=== PATIENT | male | born 1970 | race Caucasian/White ===

== ENCOUNTER 2025-02-02 14:07 | Outpatient (CLI) | payer BC, SELFPAY ==
--- OUTSIDE RECORDS SUMMARY | 2025-02-02 16:15 | XMS_ITS | Encounter Summary ---
Author Organization [facility] Health Address [address] [place] [address] Care Team Providers Care Crayon Sorting Machine Feeder Name Role Phone Unavailable Primary Care Provider Unavailabl e Encounter Details Date Type Department Care Team (Late st Contact Info) Description 04/25/2015 [facility] Outpatient Visit EXTERNAL NON-[facility] DEPT Chuck Egan MD [address] [place], [place] [id number] Social History Tobacco Use Types Packs/Day Years Used Date Smoking Tobacco: Every Day Cigarettes Alcohol Use Standard Drinks/Week Comments Yes 0 (1 standard drink = 0.6 oz pur e alcohol) socially Sex and Gender Information Value Date Recorded Sex Assigned at Not on file Legal Sex Male 4:28 AM DISABILITIES CAREGIVER Gender Identity Not on file Sexual Orientation Not on file documented as of this encounter Plan of Treatment Not on file documented as of this encounter Visit Diagnoses Not on filedocumented in this encounter
--- OUTSIDE RECORDS SUMMARY | 2025-02-02 16:15 | XMS_ITS | Clinical Summary ---
Author Organization [facility] Address [address] [place] [address] Phone Care Team Providers Care Splicing Machine Operator Automatic Name Role Phone Kristie Rooney APRN, KAHLIL Primary Care Provid er Anne Zamora MD Unavailable [phone] Allergies Active Allergy Reactions Criticality Noted Date Comments Amoxicillin-Pot Clavulanate Other (see Comments) 11/17/2008 Dizziness Poison Jaylene Extract Rash 06/03/2020 Poison [place] Extract Rash 06/03/2020 Zolpidem Other (see Comments) Low 03/12/2013 Abnormal dreams Medications traZODone (DESYREL) 50 MG TabletIndications: Primary insomnia TAKE 1 TABLET BY MOUTH EVERY NIGHT 30 Tablet 5 4 Active FLUoxetine (PROzac) 20 MG CapsuleIndications :Agitation TAKE 1 CAPSULE BY MOUTH DAILY 90 Capsule 1 5 Active atorvastatin (LIPITOR) 40 MG TabletIndications: Hyperlipidemia, unspecified hyperlipidemia type Take 1 Tablet by mouth daily. 90 Tablet 3 5 Active ondansetron (ZOFRAN-ODT) 4 MG TABLET DISPERSIBLE Take 1 Tablet by mouth every 8 hours as needed for Nausea - 1st line. 10 Tablet 5 Active meclizine (ANTIVERT) 25 MG TabletIndications: Meniere's disease of left ear Take 1 Tablet by mouth 3 times daily as needed for Dizziness. 30 Tablet 2 5 Active meclizine (ANTIVERT) 25 MG Tablet Take 1 Tablet by mouth 3 times daily as needed for Dizziness. 30 Tablet 3 01/26/20 25 Discontin ued(Reord er) atorvastatin (LIPITOR) 40 MG TabletIndications: Hyperlipidemia, unspecified hyperlipidemia type Take 1 Tablet by mouth daily. 90 Tablet 3 5 01/05/20 25 Discontin ued(Reord er) meclizine (ANTIVERT) 25 MG Tablet Take 1 Tablet by mouth 3 times daily as needed for Dizziness. 30 Tablet 5 01/26/20 25 Discontin ued(Med List Clean Up) Active Problems Problem Noted Date Diagnosed Date Meniere's disease of left ear 06/03/2020 Overview (06/03/2020): Followed by ENT [facility] in the past Past history of surgery Excessive daytime sleepiness 11/21/2017 Mild obstructive sleep apnea 11/21/2017 Vitamin D deficiency 01/16/2017 Overview (02/26/2023): Vitamin D deficiency Mixed anxiety depressive disorder 01/11/2017 Overview (02/26/2023): Anxiety and depression Hyperthyroidism 07/23/2013 Anxiety 08/16/2010 Hypertension 08/16/2010 Depression 08/16/2010 Encounters Date Type Department Care Team Description 01/25/2025 11:00 AM CDT Office Visit [facility] [address] [place] [address] Kristie Rooney APRN, DRY DIP WORKER Meniere's disease of left ear (Primary Dx) Discharge Disposition: Discharged to home or Selfcare 01/25/2025 Travel 01/20/2025 5:37 PM CDT - 01/20/2025 9:06 PM CDT [facility] [address] [place] [address] Raoul Gregg MD Vertigo Discharge Disposition: Discharged to home or Selfcare 01/20/2025 Travel 01/04/2025 11:45 AM CDT [facility] [place] [address] Kristie Rooney APRN, CNP Cough headache (Primary Dx); Viral illness; Hyperlipidemia, unspecified hyperlipidemia type; Bilateral hearing loss, unspecified hearing loss type Discharge Disposition: Discharged to home or Selfcare 01/04/2025 Travel 12/24/2024 [facility]ill [facility] [place] [address] Lc Castaneda MD Medication Refill 12/07/2024 [facility]ill [facility] [place] [address] Kristie Rooney APRN, CNP Medication Refill 12/02/2024 Telephone [facility] [address] [place] [address] Kristie Rooney APRN, CNP Form Completion; Letter for School/Work from Last 3 Months Immunizations Immunization Administration Dates Next Due Influenza Vaccine, Quadrivalent, PF 08/04/2021 Influenza,Split Virus,Trivalent,Injectable,PF Pneumococcal Vaccine Adult - 23 Valent TDAP Vaccine 06/03/2020,06/09/2009 Family History Medical History Relation Name Comments Alzheimer's Disease Father High Cholesterol Father Cancer Mother breast Heart Disease Mother Relation Name Status Comments Father Mother Social History Tobacco Use Types Packs/Day Years Used Date Smoking Tobacco: Former Cigarettes 1 30 Smokeless Tobacco: Never Tobacco Cessation:Counseling Given: No Alcohol Use Standard Drinks/Week Comments Not Currently 0 (1 standard drink = 0.6 oz pur e alcohol) PHQ-2 Answer Date Recorded Total Score - Questions 1-9 0 08/14 Education Answer Date Recorded What is the highest level of school you have completed or the highest degree you have received? 12th grade 05/30/2023 Sexually Active Control Partners Comments Yes Sex and Gender Information Value Date Recorded Sex Assigned at Not on file Legal Sex Male 10:07 AM CDT Gender Identity Not on file Sexual Orientation Not on file Last Filed Vital Signs Vital Sign Reading Time Taken Comments Blood Pressure 130/86 01/25/2025 11:18 AM CDT Pulse 76 01/25/2025 11:18 AM CDT Temperature 36.4 C (97.6 F) 01/25/2025 11:18 AM CDT Respiratory Rate 16 01/25/2025 11:1 8 AM CDT Oxygen Saturation 95% 01/25/2025 11: 18 AM CDT Inhaled Oxygen Concentration - - Weight 103.7 kg (228 lb 9.6 oz) 025 11:18 AM CDT Height 182.9 cm (6') 01/25/2025 11:18 AM CDT Body Mass Index 31 01/25/2025 11:18 AM CDT Plan of Treatment Upcoming Encounters Date Type Department Care Team (Late st Contact Info) Description 02/03/2025 10:00 AM CDT Office Visit [facility] General Surgery [facility] [address]2 [facility] [address] [place] [address] Kristie Rooney APRN, DRY DIP WORKER #2 [facility] [address] [place] [address] Anne Zamora MD #1 [place] [address] 08/27/2025 10:30 AM CREDIT CARD ASSOCIATE Office Visit [facility] Family Medicine [facility] [address]2 [place] [address] Kristie Rooney APRN, DRY DIP WORKER #[address] [address] Health Maintenance Due Date Last Done Comments Hepatitis C Virus (HCV) Screening 1970 Hepatitis B Immunization (1 of 3 - 19+ 3-dose series) 1989 Cologuard 2020 Immunochemical Fecal Occult Blood 2020 Zoster Immunization (1 of 2) 2020 Pneumococcal Immunization (5 0+ years) (2 of 2 - PCV) 08/04/2022 08/04/2021 SARS-COV-2 Immunization (3 - season) 2024 03/18/2021, 02/25/2021 Colonoscopy 07/06/2025 07/06/2020 Colorectal Cancer Screening 07/06/2025 Td Immunization Every 10 Yea rs (Adults With 1 Tdap) 06/03/2030 06/03/2020, 06/09/2009 Respiratory Syncytial Virus (RSV) Immunization (Adult) (1 - 1-dose 75+ series) 2045 07/06/2020 DTaP/Tdap/Td Immunization Discontinued 2019, 06/09/2009 Pneumococcal Immunization Combined Discontinued 08/04/2021 Lung Cancer Screening Discontinued 11/19/2022 Influenza Immunization Completed , 08/04/2021 Meningococcal Immunization (ACWY) Aged Out No longer eligible based on patient's age to complete this topic Rotavirus Immunization Aged Out No lo nger eligible based on patient's age to complete this topic Medical Devices Implanted Type Area Behaviour Support Teacher Device Identifier Shelf Expiration Date Model / Serial / Lot Clip 360 Resolution 235cm - [id number] Implanted:Qty: 2 on 07/06/2020 by Bassam Diaz DO at [facility] IMPLANT Siving Egil Kvaleberg 04/25/2023 [id number] / [id number] / [id number] Procedures Procedure Name Priority Date/Time Associated Diagnosis Comments CT HEAD OR BRAIN WO CONTRAST Stat with Interpretation 01/20/2025 7:55 PM CDT POC INFLUENZA A AND B BY MOLECULAR Routine 01/04/2025 11:59 AM CDT Cough headache POC SARS-COV-2 BY MOLECULAR Routine 01/04/2025 11:59 AM CDT Cough headache CT CHEST SCREENING WO Routine 11/19/2022 1:40 PM CREDIT CARD ASSOCIATE Personal history of tobacco use, presenting hazards to health from Last 3 Months or Most Recently Relevant to Health Maintenance Results * CT HEAD OR BRAIN WO CONTRAST (01/20/2025 7:55 PM CDT) Anatomical Region Laterality Modality Head N/A Computed Tomogra phy 01/20/2025 8:07 PM CDT Impressions 01/20/2025 8:10 PM CDT IMPRESSION: No acute intracranial findings. Narrative 01/20/2025 8:10 PM CDT EXAM DESCRIPTION: CT HEAD OR BRAIN WO CONTRAST REASON FOR STUDY: Persistent dizziness TECHNIQUE: Axial images acquired through the brain without intravenous contrast. Images stored on PACS. Automated exposure control was used as a dose optimization technique for this examination. COMPARISON: None FINDINGS: BRAIN: No hemorrhage, edema or mass effect. No recent infarct. Normal white matter. EXTRA-AXIAL SPACES: No fluid collections. No masses. CALVARIUM: No fracture. Old left occipital craniotomy defect is noted. SINUSES/MASTOIDS: No fluid or mucosal thickening. ORBITS: No significant abnormality. OTHER: No other significant abnormality. THIS IS AN ELECTRONICALLY VERIFIED FINAL REPORT 01/20/2025 8:07 PM - Electronically signed by Filemon FLOOD: ALEENA Report ID: [id number] Reading Location: [id number] Procedure Note Filemon Amaya MD - 01/20/2025 EXAM DESCRIPTION: CT HEAD OR BRAIN WO CONTRAST REASON FOR STUDY: Persistent dizziness TECHNIQUE: Axial images acquired through the brain without intravenous contrast. Images stored on PACS. Automated exposure control was used as a dose optimization technique for this examination. COMPARISON: None FINDINGS: BRAIN: No hemorrhage, edema or mass effect. No recent infarct. Normal white matter. EXTRA-AXIAL SPACES: No fluid collections. No masses. CALVARIUM: No fracture. Old left occipital craniotomy defect is noted. SINUSES/MASTOIDS: No fluid or mucosal thickening. ORBITS: No significant abnormality. OTHER: No other significant abnormality. THIS IS AN ELECTRONICALLY VERIFIED FINAL REPORT 01/20/2025 8:07 PM - Electronically signed by Filemon FLOOD: ALEENA Report ID: [id number] Reading Location: [id number] IMPRESSION: No acute intracranial findings. Raoul Gregg MD IMG CT ORDERABLES Final Re sult * POC SARS-COV-2 BY MOLECULAR (01/04/2025 11:59 AM CDT) SARSCOV2 Negative Negative, INVALID PROCEDURE CONTROL Valid 01/04/2025 11:5 9 AM CDT Kristie Nevin CORE LAYING MACHINE OPERATOR, DRY DIP WORKER POINT OF CARE TESTIN G (MANUAL) Final Result * POC INFLUENZA A AND B BY MOLECULAR (01/04/2025 11:59 AM CDT) INFLUENZA A RNA Negative Negative, Invalid INFLUENZA B RNA Negative Negative, Invalid PROCEDURE CONTROL Valid 01/04/2025 11:5 9 AM CDT Kristie Nevin CORE LAYING MACHINE OPERATOR, DRY DIP WORKER POINT OF CARE TESTIN G (MANUAL) Final Result * CT CHEST SCREENING WO (11/19/2022 1:40 PM CREDIT CARD ASSOCIATE) Anatomical Region Laterality Modality Chest N/A Computed Tomogra phy 11/20/2022 5:56 PM CREDIT CARD ASSOCIATE Impressions 11/20/2022 5:59 PM CREDIT CARD ASSOCIATE IMPRESSION: No suspicious pulmonary nodules. Tiny pulmonary nodules have a benign appearance or behavior. Moderate coronary artery calcifications. Recommend coronary risk assessment. Lung-RADS v1.1 category 2S: Benign appearance or behavior. Finding other than a pulmonary nodule which is potentially clinically significant. Recommendation: Low dose Screening CT of chest in 12 months. Narrative 11/20/2022 5:59 PM CREDIT CARD ASSOCIATE EXAM DESCRIPTION: CT CHEST SCREENING WO REASON FOR STUDY: Screening CT of the chest in a former smoker with a 30 pack year smoking history. Additional history: None. TECHNIQUE: Low dose CT scan of the chest was performed without intravenous contrast using helical scanning technique. The exam extends from the lung apices through the lung bases. Automatic exposure control was used as a dose optimization technique. NOTE: This study was performed for the specific purposes of lung cancer screening and is not an alternative to diagnostic chest CT. RADIATION DOSE: CT dose index volume (CTDIvol) = 4 mGy COMPARISON: Thoracic spine CT dated 07/18/2022. FINDINGS: SMOKING RELATED LUNG DISEASE: Minimal emphysema. LUNG NODULES: 1. 3 mm solid pulmonary nodule in the left upper lobe seen on series 5, image 108 2. 2 mm solid pulmonary nodule in the left upper lobe on image 84. 3. There are several other 1-3 mm small pulmonary nodules 5 mm solid pulmonary nodule in the left upper lobe on image 111 unchanged from prior. 4. Unchanged 4 mm nodule in the left lower lobe on image 178 CORONARY ARTERY CALCIFICATION: There are coronary calcifications, moderate in severity. OTHER: Heart size is normal. No lymphadenopathy. The chest wall appears normal. The upper abdomen appears normal. No suspicious osseous lesion. There is a healed endplate fracture of T11 with Schmorl's node. THIS IS AN ELECTRONICALLY VERIFIED FINAL REPORT 11/20/2022 5:56 PM - Electronically signed by Filemon Putnam M.D. KN: PADMINI Report ID: [id number] Reading Location: [place] [address] Procedure Note Filemon Putnam MD - 11/20/2022 EXAM DESCRIPTION: CT CHEST SCREENING WO REASON FOR STUDY: Screening CT of the chest in a former smoker with a 30 pack year smoking history. Additional history: None. TECHNIQUE: Low dose CT scan of the chest was performed without intravenous contrast using helical scanning technique. The exam extends from the lung apices through the lung bases. Automatic exposure control was used as a dose optimization technique. NOTE: This study was performed for the specific purposes of lung cancer screening and is not an alternative to diagnostic chest CT. RADIATION DOSE: CT dose index volume (CTDIvol) = 4 mGy COMPARISON: Thoracic spine CT dated 07/18/2022. FINDINGS: SMOKING RELATED LUNG DISEASE: Minimal emphysema. LUNG NODULES: 1. 3 mm solid pulmonary nodule in the left upper lobe seen on series 5, image 108 2. 2 mm solid pulmonary nodule in the left upper lobe on image 84. 3. There are several other 1-3 mm small pulmonary nodules 5 mm solid pulmonary nodule in the left upper lobe on image 111 unchanged from prior. 4. Unchanged 4 mm nodule in the left lower lobe on image 178 CORONARY ARTERY CALCIFICATION: There are coronary calcifications, moderate in severity. OTHER: Heart size is normal. No lymphadenopathy. The chest wall appears normal. The upper abdomen appears normal. No suspicious osseous lesion. There is a healed endplate fracture of T11 with Schmorl's node. THIS IS AN ELECTRONICALLY VERIFIED FINAL REPORT 11/20/2022 5:56 PM - Electronically signed by Filemon Putnam M.D. KN: PADMINI Report ID: [id number] Reading Location: [place] [address] IMPRESSION: No suspicious pulmonary nodules. Tiny pulmonary nodules have a benign appearance or behavior. Moderate coronary artery calcifications. Recommend coronary risk assessment. Lung-RADS v1.1 category 2S: Benign appearance or behavior. Finding other than a pulmonary nodule which is potentially clinically significant. Recommendation: Low dose Screening CT of chest in 12 months. [facility]bec[facility] Zhu [facility] Final Result from Last 3 Months or Most Recently Relevant to Health Maintenance Insurance [facility] Care Teams Splicing Machine Operator Automatic Relationship Specialty Start Date End Date Kristie Rooney APRN, KAHLIL [address] [address] PCP - General Advanced Practice Nurse 08/04/21 Anne Zamora MD #1 [place] [id number] Consulting Physician Otolaryngology 02/02/25
--- OUTSIDE RECORDS SUMMARY | 2025-02-02 16:15 | XMS_ITS | Clinical Summary ---
Author Organization [facility] Address [address] [place] [address] Care Team Providers Care Hanger Name Role Phone Unavailable Primary Care Provider Unavailabl e Source Comments [facility],non-owned Affiliates and Associated Physician Practices is amultiple site organization consisting of ambulatory clinics and hospital sitesin [place], [place], [place] and [place]. This disclosure is being madepursuant to the Care Everywhere program and may not contain all information available regarding this patient. Last updated 18.[facility] Allergies Active Allergy Reactions Criticality Noted Date Comments Augmentin 11/17/2008 Zolpidem Psychiatric 03/12/2013 Medications * Be aware that medications may not be up to date on this document. Alwaysverify current medications with the patient. triamterene-hydr ochlorothiazide (DYAZIDE) 37.5-25 MG capsule Take 1 Cap by mouth daily. 30 Cap 5 08/24/2010 Active escitalopram (LEXAPRO) 20 MG tablet TAKE ONE TABLET BY MOUTH ONCE DAILY 90 Tab 1 06/01/2013 Active buPROPion XL 24hr (WELLBUTRIN XL) 150 MG tablet Take 150 mg by mouth once daily. Active pitavastatin (LIVALO) 4 MG tablet Take 1 Tab by mouth once daily. 90 Tab 1 08/10/2013 Active ALPRAZolam (XANAX) 1 MG tablet Take 1 Tab by mouth 3 times daily as needed for Anxiety. 90 Tab 0 10/09/2013 Active Active Problems Problem Noted Date Diagnosed Date Hyperthyroidism 07/23/2013 Skin tag 06/27/2011 Overview (03/07/2015): Allergic rhinitis 06/27/2011 Headache 06/27/2011 Overview (08/21/2015): Pharyngitis, acute 06/27/2011 Insomnia 06/27/2011 Meniere disease 06/27/2011 Tinnitus 06/27/2011 Fatigue 06/27/2011 Hyperlipidemia 11/08/2010 Depression 08/16/2010 Hypertension 08/16/2010 Anxiety 08/16/2010 Immunizations Immunization Administration Dates Next Due TDAP (7yrs+) 06/09/2009 Social History Tobacco Use Types Packs/Day Years Used Date Smoking Tobacco: Every Day Cigarettes Alcohol Use Standard Drinks/Week Comments Yes 0 (1 standard drink = 0.6 oz pur e alcohol) socially Sex and Gender Information Value Date Recorded Sex Assigned at Not on file Legal Sex Male 4:28 AM PHYSICIAN INTENSIVIST Gender Identity Not on file Sexual Orientation Not on file Last Filed Vital Signs Vital Sign Reading Time Taken Comments Blood Pressure 100/56 07/30/2013 2:47 PM CDT Pulse 84 07/30/2013 2:47 PM CDT Temperature 36.9 C (98.4 F) 07/30/2013 2:47 PM CDT Respiratory Rate - - Oxygen Saturation - - Inhaled Oxygen Concentration - - Weight 107.5 kg (237 lb) 07/30/2013 2:47 PM CDT Height 182.9 cm (6') 07/30/2013 2:47 PM CDT Body Mass Index 32.14 07/30/2013 2:47 PM CDT Plan of Treatment Health Maintenance Due Date Last Done Comments COLOGUARD (AGES 45-75) - COL ON CA SCREENING 1970 COLON MONITORING 1970 COLONOSCOPY - COLON CA SCREENING 1970 CT COLONOGRAPHY - COLON CA SCREENING 1970 Colorectal Cancer Screening 1970 FIT - COLON CA SCREENING 1970 FLEX SIG - COLON CA SCREENING 1970 HIV SCREENING 1985 HEPATITIS C SCREENING 06/23/1988 HEPATITIS B VACCINE (1 of 3 - 19+ 3-dose series) 1989 PNEUMOCOCCAL VACCINE 50+ (1 of 2 - PCV) 1989 DTAP/TDAP/TD VACCINES (2 - T d or Tdap) 06/09/2019 06/09/2009 ZOSTER VACCINE (1 of 2) 2020 COVID-19 VACCINE ( - 2023-2 5 season) 2024 DEPRESSION SCREENING 10/14/2024 INFLUENZA VACCINE (Season Ended) 2025 HIB VACCINE Aged Out No longer eligi ble based on patient's age to complete this topic HPV VACCINE Aged Out No longer eligi ble based on patient's age to complete this topic MENINGOCOCCAL (Group B) VACC INE SHARED DECISION-MAKING Aged Out No longer eligibl e based on patient's age to complete this topic MENINGOCOCCAL GROUPS A/C/Y/W VACCINE Aged Out No longer eligible b ased on patient's age to complete this topic Insurance [facility]
--- OUTSIDE RECORDS SUMMARY | 2025-02-02 16:15 | XMS_ITS | Encounter Summary ---
Author Organization [facility] Address [address] [place] [address] Phone Care Team Providers Care Certified Pedorthotist Name Role Phone Kristie Rooney APRN, CNP Primary Care Provid er Anne Zamora MD Unavailable [phone] Reason for Visit * Reason Comments Medication Refill Encounter Details Date Type Department Care Team (Late st Contact Info) Description 05/26/2023 Refill [facility] - Family Medicine [facility] [address] [place] [address] Kristie Rooney APRN, CNP [address] [address] Medication Refill Social History Tobacco Use Types Packs/Day Years Used Date Smoking Tobacco: Former Cigarettes 1 30 Smokeless Tobacco: Never Alcohol Use Standard Drinks/Week Comments Not Currently 0 (1 standard drink = 0.6 oz pur e alcohol) PHQ-2 Answer Date Recorded Total Score - Questions 1-9 0 12/10/2021 Sexually Active Control Partners Comments Yes Sex and Gender Information Value Date Recorded Sex Assigned at Not on file Legal Sex Male 10:07 AM CDT Gender Identity Not on file Sexual Orientation Not on file documented as of this encounter Miscellaneous Notes * Telephone Encounter - Brea Gonzales RN - 05/26/2023 12:07 PM CDT Medication failed the protocol, provider to review and approve the medication order if appropriate. Requested Prescriptions Pending Prescriptions Disp Refills traZODone (DESYREL) 50 MG Tablet [Pharmacy Med Name: TRAZODONE 50MG TABLETS] 90 Tablet 0 Sig: TAKE 1 TABLET BY MOUTH EVERY NIGHT Serotonin Modulators (6 Month Refill Only) Protocol Failed - 05/26/2023 8:20 AM Failed - Has an encounter in the past 6 months with a depression or anxiety visit diagnosis Failed - Patient has established therapy with Serotonin Modulators for at least 6 months Passed - Visit with relevant provider in past 6 months or upcoming 90 days Recent Visits Date Type Provider Dept 02/26/23 Office Visit Kristie Rooney APRN, KAHLIL [facility] Showing recent visits within past 182 days and meeting all other requirements Future Appointments Date Type Provider Dept 05/30/23 Appointment Lc Castaneda MD [facility] 07/01/23 Appointment Kristie Rooney APRN, KAHLIL [facility] Showing future appointments within next 90 days and meeting all other requirements Passed - No PRN Use for Trazodone documented in this encounter Plan of Treatment Upcoming Encounters Date Type Department Care Team (Late st Contact Info) Description 02/03/2025 10:00 AM CDT Office Visit [facility] Medical [facility] - General Surgery - [place] #2 [facility] [address] [place] [phone] Kristie Rooney APRN, BACK UP MACHINE OPERATOR #[address] [phone] Anne Zamora MD #1 [place] [address] 08/27/2025 10:30 AM MANAGING PARTNER Office Visit [facility] Family Medicine [facility] #2 [place] [address] Kristie Rooney APRN, BACK UP MACHINE OPERATOR #2 [facility] [address] [place] [address] documented as of this encounter Visit Diagnoses Diagnosis Primary insomnia Persistent disorder of initiating or maintaining sleep documented in this encounter Additional Health Concerns Infection Onset Date Last Indicated Resolved Time COVID - 19 01/04/2025 01/04/2025 01/04/2025 12:0 9 PM CDT Respiratory Rule-Out 01/04/2025 01/04/2025 025 12:09 PM CDT Assessment Noted Time PHQ-9 Depression Total Score: 0 09/13/20 1:00 PM MANAGING PARTNER documented as of this encounter Care Teams Certified Pedorthotist Relationship Specialty Start Date End Date Kristie Rooney APRN, KAHLIL [address] [address] PCP - General Advanced Practice Nurse 08/04/21 Anne Zamora MD [address] [place] [address] Consulting Physician Otolaryngology 02/02/25 documented as of this encounter
--- OUTSIDE RECORDS SUMMARY | 2025-02-02 16:15 | XMS_ITS | Encounter Summary ---
Author Organization [facility] Address [address] [place] [address] Phone Care Team Providers Care Project Manager Finance Name Role Phone Kristie Rooney APRN, CNP Primary Care Provid er Anne Zamora MD Unavailable [phone] Reason for Visit * Reason Comments Medication Refill Encounter Details Date Type Department Care Team (Late st Contact Info) Description 05/26/2023 Refill [facility] - [facility] [address] [place] [address] Lc Castaneda MD #[address] [address] Medication Refill Social History Tobacco Use Types [...] Encounter - Brea Gonzales RN - 05/26/2023 12:06 PM CDT Medication failed the protocol, provider to review and approve the medication order if appropriate. Requested Prescriptions Pending Prescriptions Disp Refills FLUoxetine (PROzac) 20 MG Capsule [Pharmacy Med Name: FLUOXETINE 20MG CAPSULES] 90 Capsule 1 Sig: TAKE 1 CAPSULE BY MOUTH DAILY SSRI (6 Month Refill Only) Protocol Failed - 05/26/2023 8:20 AM Failed - Has an encounter in the past 6 months with a depression, anxiety, adjustment disorder, OCD, or PTSD visit diagnosis Passed - Visit with relevant provider in past 6 months or upcoming 90 days Recent Visits Date Type Provider Dept 02/26/23 Office Visit Kristie Rooney APRN, KA[facility] Showing recent visits within past 182 days and meeting all other requirements Future Appointments Date Type Provider Dept 05/30/23 Appointment Lc Castaneda MD [facility] 07/01/23 Appointment Kristie Rooney APRN, [facility] Showing future appointments within next 90 days and meeting all other requirements Passed - Patient has established therapy with SSRI for at least 6 months documented in this encounter Plan of Treatment Upcoming Encounters Date Type Department Care Team (Late st Contact Info) Description 02/03/2025 10:00 AM CDT Office Visit [facility] - General Surgery - [place] #[address] [address] Kristie Rooney APRN, BRANCH OR DEPARTMENT CHIEF LIBRARIAN #[address] [address] Anne Zamora MD #1 [place] [address] 08/27/2025 10:30 AM MAT SEWER Office Visit [facility] Family Medicine [facility] [address] [place] [address] Kristie Rooney APRN, BRANCH OR DEPARTMENT CHIEF LIBRARIAN #[address] [phone] documented as of this encounter Visit Diagnoses Diagnosis Agitation Other and unspecified special symptom or syndrome, not elsewhere classified documented in this encounter Additional Health Concerns Infection Onset Date Last Indicated Resolved Time COVID - 19 01/04/2025 01/04/2025 01/04/2025 12:0 9 PM CDT Respiratory Rule-Out 01/04/2025 01/04/2025 025 12:09 PM CDT Assessment Noted Time PHQ-9 Depression Total Score: 0 09/13/20 1:00 PM MAT SEWER documented as of this encounter Care Teams Project Manager Finance Relationship Specialty Start Date End Date Kristie Rooney APRN, CNP [address] [facility] [address] [address] PCP - General Advanced Practice Nurse 08/04/21 Anne Zamora MD #[address] [place] [address] Consulting Physician Otolaryngology 02/02/25 documented as of this encounter
--- OUTSIDE RECORDS SUMMARY | 2025-02-02 16:15 | XMS_ITS | Encounter Summary ---
Author Organization [facility] Address [address] [facility] [address] [facility] [place] [address] Phone Care Team Providers Care Sled Maker Name Role Phone Kristie Rooney APRN, CNP Primary Care Provid er Anne Zamora MD Unavailable [phone] Reason for Visit * Reason Comments Medication Refill Encounter Details Date Type Department Care Team (Late st Contact Info) Description 11/13/2022 Refill [facility] - Family Medicine [facility] [address] [place] [address] Kristie Rooney APRN, CNP #[address] [address] Medication Refill Social History Tobacco Use Types Packs/Day Years Used Date Smoking Tobacco: Former Cigarettes 1 30 Smokeless Tobacco: Never Alcohol Use Standard Drinks/Week Comments Not Currently 0 (1 standard drink = 0.6 oz pur e alcohol) PHQ-2 Answer Date Recorded Total Score - Questions 1-9 0 1210/2021 Sexually Active Control Partners Comments Yes Sex and Gender Information Value Date Recorded Sex Assigned at Not on file Legal Sex Male 10:07 AM CDT Gender Identity Not on file Sexual Orientation Not on file COVID-19 Exposure Response Date Recorded In the last 10 days, have yo u been in contact with someone who was confirmed or suspected to have Coronavirus/COVID-19? No / Unsure 10/25/2022 1:26 PM RESIZER OPERATOR documented as of this encounter Miscellaneous Notes * Telephone Encounter - Radha Cyr RN - 11/13/2022 11:55 AM CST Medication failed the protocol, provider to review and approve the medication order if appropriate. Requested Prescriptions Pending Prescriptions Disp Refills FLUoxetine (PROzac) 20 MG Capsule [Pharmacy Med Name: FLUOXETINE 20MG CAPSULES] 90 Capsule 1 Sig: TAKE 1 CAPSULE BY MOUTH DAILY SSRI (6 Month Refill Only) Protocol Failed - 11/13/2022 11:43 AM Failed - Patient has established therapy with SSRI for at least 6 months Failed - Has an encounter in the past 6 months with a depression, anxiety, adjustment disorder, OCD, or PTSD visit diagnosis Passed - Visit with relevant provider in past 6 months or upcoming 90 days Recent Visits Date Type Provider Dept 10/25/22 Office Visit Rebeca Zhu PAC [facility] 09/13/22 Office Visit Rebeca Zhu PAC [facility] 08/10/22 Office Visit Rebeca Zhu PAC [facility] 07/27/22 Office Visit Kristie Rooney APRN, [facility] 07/19/22 Office Visit Rebeca Zhu PAC [facility] Showing recent visits within past 182 days and meeting all other requirements Future Appointments No visits were found meeting these conditions. Showing future appointments within next 90 days and meeting all other requirements ZER OPERATOR documented in this encounter Plan of Treatment Upcoming Encounters Date Type Department Care Team (Late st Contact Info) Description 02/03/2025 10:00 AM CDT [facility] Visit [facility] - [facility] - [place] [facility]2 [facility] [address] [place] [phone] Kristie Rooney APRN, SERVICE OR WORK DISPATCHER CHIEF #2 [facility] [address] [place] [address] Anne Zamora MD #1 [place] [address] 08/27/2025 10:30 AM RESIZER OPERATOR Office Visit [facility] - Family Medicine - [place] [address] [place] [address] Kristie oRoney APRN, SERVICE OR WORK DISPATCHER CHIEF #[address] [address] documented as of this encounter Visit Diagnoses Diagnosis Agitation Other and unspecified special symptom or syndrome, not elsewhere classified documented in this encounter Additional Health Concerns Infection Onset Date Last Indicated Resolved Time COVID - 19 01/04/2025 01/04/2025 01/04/2025 12:0 9 PM CDT Respiratory Rule-Out 01/04/2025 01/04/2025 025 12:09 PM CDT Assessment Noted Time PHQ-9 Depression Total Score: 0 09/13/20 22 1:00 PM RESIZER OPERATOR documented as of this encounter Care Teams Sled Maker Relationship Specialty Start Date End Date Kristie Rooney APRN, SERVICE OR WORK DISPATCHER CHIEF #[address] [address] PCP - General Advanced Practice Nurse 08/04/21 Anne Zamora MD #1 [place] [address] Consulting Physician Otolaryngology 02/02/25 documented as of this encounter
== END 2025-02-02 14:08 | disposition home or self-care (01) ==
LOC: ANHBWCAUD 14:08
DX: H90.3 Sensorineural hearing loss, bilateral (principal)
CPT/HCPCS: 92557; 92567